=== PATIENT | female | born 1980 | race Caucasian/White ===

== ENCOUNTER → 2019-04-25 22:30 | Outpatient (CLI) | payer MEDICAID ==
[2009-09-05 17:18] VITALS: BMI 20.3
== END | disposition home or self-care (01) ==
LOC: D.LABREF 22:30
PROVIDERS: ATTEND Urology
DX: R31.9 Hematuria, unspecified (principal)

== ENCOUNTER 2019-08-18 14:58 | Emergency (ER) | payer BC ==
[~2019-08-18] VITALS: Ht 165.1 cm; Wt 62.7 kg
[~2019-08-18 14:58] MED LIST: KLONOPIN1 MG PO; TRAZODONE HCL150 MG PO; VYVANSE30 MG PO
[2019-08-18 15:02] VITALS: Ht 165.1 cm; Wt 62.7 kg
[2019-08-18 15:37] LABS: HCG SERUM NEGATIVE (NEGATIVE)
[2019-08-18 16:03] VITALS: BP 102/60
== END 2019-08-18 16:05 | disposition home or self-care (01) ==
LOC: D.ER 14:58
PROVIDERS: Family Medicine
DX: Z32.02 Encounter for pregnancy test, result negative (principal)